=== PATIENT | male | born 1965 | race Caucasian/White ===

== ENCOUNTER → 2023-09-14 06:28 | Day surgery (SDC) | payer OTHER, SELFPAY ==
[2023-09-14 07:39] LABS: Glucose - Point of Care 155 mg/dl (70-99)
== END ==
LOC: GI 06:28
PROVIDERS: ATTENDING PHYSICIAN Surgery
DX: Z12.11 Encounter for screening for malignant neoplasm of colon (principal); K57.30 Diverticulosis of large intestine without perforation or abscess without bleeding; K64.9 Unspecified hemorrhoids; D12.2 Benign neoplasm of ascending colon; D12.3 Benign neoplasm of transverse colon; Z86.010 Personal history of colon polyps
CPT/HCPCS: 45380; 88305; 82962